=== PATIENT | male | born 1945 | race Caucasian/White ===

== ENCOUNTER 2023-12-22 14:43 | Emergency (ER) | payer MEDICARE, SELFPAY ==
[2023-12-22 14:45] VITALS: BP 179/97; PULSE 59; RESP 16; TEMP 36.1; O2SAT 98; BMI 27.5
--- NOTE | 2023-12-22 15:22 | EDS_ITS ---
HPI History of Present Illness Chief Complaint: Upper Extremity Injury Informant: patient Narrative Narrative: Patient with pain and a rash to his right upper arm. Hurts to move especially lift things. He had shingles injection in his right shoulder about a week ago, states this pain started a day or 2 after that, and has been bothering him ever since. His saw that it was red today, he states he was tolerating it pretty well but this is why he came to the hospital. He denies any systemic symptoms. He is [id number]. There is been no distal edema. No history of DVT takes no anticoagulants he is a diabetic and has neuropathy and no new numbness or paresthesias. He has been noticed some asymmetry that he did not notice before. When asked about when this happened, he states he was lifting a shovel full of dirt and he does remember feeling a pop in his right upper arm. Is been hurting ever since that. [facility] Medical History (Updated 12/22/23 @ 15:[address] Mike Goddard MD) Diabetic neuropathy Diabetes Home Medications ?Medication ?Instructions ?Recorded ?Last Taken ?Type diclofenac sodium 1 % topical gel 1 inch topical BID PRN PRN pain 12/22/23 Unknown Rx #100 grams Allergy/AdvReac Type Severity Reaction Status Date / Time Mpveawq-MRB-VnP Reductase Allergy Unknown NEEDS Verified 12/22/23 14:47 Inhibitor (Itpfiam-Kol-Knm FOLLOW-UP Reductase Inhibitor) ROS ROS ED Constitutional Constitutional ED: Denies chills or fever(s) Musculoskeletal Musculoskeletal: Reports extremity pain; Denies neck pain Integumentary Denies Abrasions, rash or wounds Neurologic Neurologic: Denies paresthesias or weakness EXAM Physical Exam Const Vital Signs: 12/22/23 14:45 Temperature 96.9 F L Temperature Source Temporal Pulse Rate 59 L Respiratory Rate 16 Blood Pressure 179/97 H Blood Pressure Mean 124 Pulse Ox 98 Oxygen Delivery Method Room Air Positive well nourished and well developed General Appearance ED: well developed and NAD Neck full ROM and supple Back/Spine normal ROM and normal to inspection Extremity Extremity Narrative: There is ecchymosis in the distal volar right upper arm, and when the patient flexes his biceps there is a asymmetric bulge there is abnormal in the right bicep. He is able. Flexing his bicep hurts, extending it at the elbow does not. All compartments are soft and nondistended. There is no other skin rash, just erythematous ecchymosis that looks like it is starting to progress down into the antecubital fossa. Neurovascular intact distally. Neuro oriented x3, no focal motor deficits and no sensory deficits noted Sensorium / Orientation: alert Psych mental status grossly normal and thought process normal Skin no wounds Rashes: no rashes MDM MDM MDM Narrative Medical decision making narrative: Clinically this is consistent with a biceps head rupture. Patient given appropriate discharge instructions, since he is diabetic we will put him on topical Voltaren rather than having him take NSAIDs to see if that helps his pain, and referred to orthopedics. Discharge Plan Triage Chief Complaint: Upper Extremity Injury ED Provider: Mike Goddard Dx/Rx/DC Orders Clinical Impression: Rupture of right biceps tendon Instructions: Biceps Tendonitis Prescriptions: New diclofenac sodium 1 % gel 1 inch topical BID PRN PRN (Reason: pain) Qty: 100 0RF Rx Instructions: apply to painful area Referrals: Arya Nicholson MD [Med Staff - Active Staff] - As soon as possible Print Language: Albanian Disposition Disposition: Home, Self Care
[2023-12-22 15:42] VITALS: BP 155/80; PULSE 72; RESP 18; TEMP 36.2; O2SAT 95
== END 2023-12-22 15:46 | disposition home or self-care (01) ==
PROVIDERS: Emergency Provider Emergency Medicine; PCP Family Medicine; Visit Provider Emergency Medicine
DX: S46.111A Strain of muscle, fascia and tendon of long head of biceps, right arm, initial encounter (principal); X58.XXXA Exposure to other specified factors, initial encounter; Y93.89 Activity, other specified
CPT/HCPCS: 99282